=== PATIENT | male | born 1995 | race African-American/Black ===

== ENCOUNTER 2020-08-10 22:44 | Emergency (ER) | payer OTHER ==
[~2020-08-10] VITALS: Ht 175.3 cm; Wt 85.5 kg
[2020-08-10 22:49] VITALS: TEMP 98.1
[2020-08-11] MEDS ORDERED: FLEXERIL 1010 MG/TAB PO (00:47)
[2020-08-11 01:08] VITALS: BP 158/67; PULSE 85
== END 2020-08-11 01:08 | disposition home or self-care (01) ==
LOC: COL.ER 22:44
DX: S06.0X9A Concussion with loss of consciousness of unspecified duration, initial encounter (principal); S16.1XXA Strain of muscle, fascia and tendon at neck level, initial encounter; V89.2XXA Person injured in unspecified motor-vehicle accident, traffic, initial encounter